=== PATIENT | male | born 1990 | race Caucasian/White ===

== ENCOUNTER 2022-08-24 11:50 | Emergency (ER) | payer MEDICAID ==
[~2022-08-24] VITALS: Ht 182 cm; Wt 91.0 kg
[2022-08-24] MEDS ORDERED: NS IV 1000 ML 1,000 ML IV STA (12:12)
[2022-08-24] MEDS ORDERED: HOLD METFORMIN - RECEIVED CONTRAST 20 ML VIAL IV SCH (12:15)
[2022-08-24] MEDS ORDERED: ONDANSETRON 4 MG/2 ML (SDV) Z0FRAN IVP ONE (12:15)
[2022-08-24] MEDS ORDERED: IOHEXOL 350 MG/ML 100 ML (OMNIPAQUE 350) VIAL IV ONE (12:15)
[2022-08-24] MEDS ORDERED: NS 100 ML (IVPB) BAG IV ONE (12:15)
--- NOTE | 2022-08-24 12:18 | ED Abdominal Pain ---
General Chief Complaint: Abdominal/GI Problems Stated Complaint: LT SIDE ABD PAIN Nursing Triage Note: PT AMB TO TRIAGE, PT STATES L SIDED ABD PAIN STARTED ON TUESDAY, RATES PAIN 6/10 AT TIMES. PT HAS NAUSEA AT TIMES. DENEIS PROB VOID OR BM AT THIS X. LAST BM 08/23/22 Source of Information: Patient Exam Limitations: No Limitations History of Present Illness Date Seen by Provider: Aug 24, 2022 Time Seen by Provider: 12:03 Initial Comments 32-year-old male presents to the ED with complaints of left sided abdominal pain for the last 4 days. States he was seen at the walk-in clinic on Tuesday, and was told it could be gas or his kidneys because he had positive left-sided CVA tenderness. States they did a urinalysis that did not show blood. States the pain has been constant, no change in the pain, no radiation. Reports some nausea, no vomiting. States had a normal bowel movement last night, denies blood in stool. Denies any pain with urination. Denies fevers. Past medical history includes depression, hypertension, and acid reflux. Allergies and Home Medications Allergies Coded Allergies: No Known Drug Allergies (Unverified , 08/24/22) Patient Home Medication List Home Medication List Reviewed: Yes Review of Systems Review of Systems Constitutional: see HPI Past Sfrqaqx-Uengrv-Gnxlwh Hx Patient Social History Tobacco Use?: No Substance use?: No Alcohol Use?: Yes Alcohol Frequency: Rarely Pt feels they are or have been: No Immunizations Up To Date Influenza Vaccine Up-to-Date: No; Not Current First/Initial COVID19 Vaccinat: no Past Medical History Surgery/Hospitalization HX: HTN, ANTI DEPRESSANT, GERD, Physical Exam Vital Signs Vital Signs - First Documented 08/24/22 11:58 Temp 36.6 Pulse 66 Resp 16 B/P (MAP) 149/86 (107) Pulse Ox 97 O2 Delivery Room Air Capillary Refill : Less Than 3 Seconds Height/Weight/BMI Height: '" Weight: lbs. oz. kg; 27.00 BMI Method: General Appearance: WD/WN, no apparent distress Neck: supple, normal inspection Respiratory: lungs clear, normal breath sounds, no respiratory distress, no accessory muscle use Cardiovascular: regular rate, rhythm, no edema, no gallop, no JVD, no murmur Gastrointestinal: normal bowel sounds, soft, no organomegaly, no pulsatile mass, tenderness (mild right lower quadrant, left lower quadrant, left upper quadrant, no rebound tenderness of right lower quadrant, negative Rovsing sign) Extremities: normal range of motion, normal inspection Back: No CVA tenderness (R); CVA tenderness (L) Neurologic/Psychiatric: alert, normal mood/affect, oriented x 3 Skin: normal color, warm/dry Progress/Results/Core Measures Results/Orders Lab Results Laboratory Tests Test 08/24/22 12:23 08/24/22 12:30 Range/Units Urine Color YELLOW Urine Clarity CLEAR Urine pH 7.0 5-9 Urine Specific [place] 1.015 L 1.016-1.022 Urine Protein NEGATIVE NEGATIVE Urine Glucose (UA) NEGATIVE NEGATIVE Urine Ketones NEGATIVE NEGATIVE Urine Nitrite NEGATIVE NEGATIVE Urine Bilirubin NEGATIVE NEGATIVE Urine Urobilinogen 0.2 < = 1.0 MG/DL Urine Leukocyte Esterase NEGATIVE NEGATIVE Urine RBC (Auto) NEGATIVE NEGATIVE Urine RBC NONE /HPF Urine WBC NONE /HPF Urine Crystals PRESENT H /LPF Urine Amorphous Sediment FEW MASSIMO PHOSPHATE H /LPF Urine Bacteria NEGATIVE /HPF Urine Casts NONE /LPF Urine Mucus NEGATIVE /LPF Urine Culture Indicated NO White Blood Count 5.5 4.3-11.0 10^3/uL Red Blood Count 4.78 4.30-5.52 10^6/uL Hemoglobin 14.8 13.3-17.7 g/dL Hematocrit 44 40-54 % Mean Corpuscular Volume 92 80-99 fL Mean Corpuscular Hemoglobin 31 25-34 pg Mean Corpuscular Hemoglobin Concent 34 32-36 g/dL Red Cell Distribution Width 13.1 10.0-14.5 % Platelet Count 246 130-400 10^3/uL Mean Platelet Volume 10.9 9.0-12.2 fL Immature Granulocyte % (Auto) 0 % Neutrophils (%) (Auto) 58 42-75 % Lymphocytes (%) (Auto) 30 12-44 % Monocytes (%) (Auto) 9 0-12 % Eosinophils (%) (Auto) 3 0-10 % Basophils (%) (Auto) 1 0-10 % Neutrophils # (Auto) 3.2 1.8-7.8 10^3/uL Lymphocytes # (Auto) 1.6 1.0-4.0 10^3/uL Monocytes # (Auto) 0.5 0.0-1.0 10^3/uL Eosinophils # (Auto) 0.2 0.0-0.3 10^3/uL Basophils # (Auto) 0.0 0.0-0.1 10^3/uL Immature Granulocyte # (Auto) 0.0 0.0-0.1 10^3/uL Sodium Level 141 135-145 MMOL/L Potassium Level 4.2 3.6-5.0 MMOL/L Chloride Level 105 98-107 MMOL/L Carbon Dioxide Level 26 21-32 MMOL/L Anion Gap 10 5-14 MMOL/L Blood Urea Nitrogen 13 7-18 MG/DL Creatinine 0.97 0.60-1.30 MG/DL Estimat Glomerular Filtration Rate 107 BUN/Creatinine Ratio 13 Glucose Level 103 70-105 MG/DL Calcium Level 9.5 8.5-10.1 MG/DL Corrected Calcium 9.1 8.5-10.1 MG/DL Total Bilirubin 0.5 0.1-1.0 MG/DL Aspartate Amino Transf (AST/SGOT) 19 5-34 U/L Alanine Aminotransferase (ALT/SGPT) 22 0-55 U/L Alkaline Phosphatase 59 40-136 U/L Total Protein 7.2 6.4-8.2 GM/DL Albumin 4.5 3.2-4.5 GM/DL Amylase Level 85 25-125 U/L Lipase 26 8-78 U/L My Orders Orders - STEFANO ANGELO [employer]ER[employer] Ua Culture If Indicated (08/24/22 11:58) Ondansetron Injection (Zofran Injectio (08/24/22 12:15) Ns Iv 1000 Ml (Sodium Chloride 0.9%) (08/24/22 12:12) Ed Iv/Invasive Line Start (08/24/22 12:12) Comprehensive Metabolic Panel (08/24/22 12:12) Lipase (08/24/22 12:12) Amylase (08/24/22 12:12) Cbc With Automated Diff (08/24/22 12:12) Ct Abdomen/Pelvis W (08/24/22 12:12) Iohexol Injection (Omnipaque 350 Mg/Ml 1 (08/24/22 12:15) Received Contrast (Hold Metformin- Contr (08/24/22 12:15) Ns (Ivpb) (Sodium Chloride 0.9% Ivpb Bag (08/24/22 12:15) Ketorolac Injection (Toradol Injection) (08/24/22 12:30) Medications Given in ED Current Medications Medications Dose Ordered Sig/Loretta Route Start Time Stop Time Status Last Admin Dose Admin Iohexol 100 ml ONCE ONCE IV 08/24/22 12:15 08/24/22 12:16 DC 08/24/22 13:05 80 ML Ketorolac Tromethamine 15 mg ONCE ONCE IVP 08/24/22 12:30 08/24/22 12:31 DC 08/24/22 12:31 15 MG Ondansetron HCl 4 mg ONCE ONCE IVP 08/24/22 12:15 08/24/22 12:16 DC 08/24/22 12:31 4 MG Sodium Chloride 100 ml ONCE ONCE IV 08/24/22 12:15 08/24/22 12:16 DC 08/24/22 13:06 80 ML Vital Signs/I&O 08/24/22 08/24/22 11:58 13:55 Temp 36.6 36.0 Pulse 66 60 Resp 16 18 B/P (MAP) 149/86 (107) 132/89 Pulse Ox 97 98 O2 Delivery Room Air Room Air Blood Pressure Mean: 107 Progress Progress Note #1: Time: 12:18 Progress Note Patient seen and evaluated, resting comfortably in bed, no acute distress, nontoxic. Abdomen soft and mildly tender in left upper quadrant, left lower quadrant, and right lower quadrant. No rebound tenderness, negative Rovsing sign. Based on exam and symptoms, differential diagnosis includes but is not limited to gastritis, nephrolithiasis, pyelonephritis, diverticulitis, appendicitis. Work-up initiated including CBC, CMP, amylase, lipase, UA, CT abdomen pelvis. IV fluids and Zofran ordered. Progress Note #2: Time: 13:36 Progress Note Labs and CT reviewed. CBC grossly normal, WBC 5.5, hemoglobin 14.8, hematocrit 44. CMP grossly normal, potassium 4.2, BUN 13, creatinine 0.97, GFR 107. Amylase normal 85, lipase normal 26. UA shows low specific gravity 1.015, crystals present, few amorphous sediment. CT negative for any acute abnormalities Results discussed with patient. Discharge instructions and return precautions provided. Departure Impression Primary Impression: Abdominal pain Qualified Codes: R10.9 - Unspecified abdominal pain Disposition: HOME, SELF-CARE Condition: Stable Departure-Patient Inst. Decision time for Depature: 13:45 Referrals: AIYANA DOMINGUEZ (PCP/Family) Primary Care Physician Patient Instructions: Abdominal Pain, Adult ED Add. Discharge Instructions: Follow-up with your primary care provider. Return for worsening pain, recurrent vomiting, fever, or any other new, concerning, worsening symptoms. All discharge instructions reviewed with patient and/or family. Voiced understanding. STEFANO ANGELO APRN Aug 24, 2022 12:18
[2022-08-24 12:30] LABS: BILIRUBIN,URINE NEGATIVE (NEGATIVE); CLARITY,URINE CLEAR; COLOR,URINE YELLOW; GLUCOSE, URINE (UA) NEGATIVE (NEGATIVE); KETONES,URINE NEGATIVE (NEGATIVE); LEUKOCYTE ESTERASE ,URINE NEGATIVE (NEGATIVE); NITRITE,URINE NEGATIVE (NEGATIVE); PROTEIN,URINE NEGATIVE (NEGATIVE)
[2022-08-24] MEDS ORDERED: KETOROLAC 15 MG/ML VIAL IVP ONE (12:30)
[2022-08-24 12:39] LABS: BASOPHILS % (AUTO) 1 % (0-10); EOSINOPHILS # (AUTO) 0.2 10^3/uL (0.0-0.3); EOSINOPHILS % (AUTO) 3 % (0-10); HEMATOCRIT 44 % (40-54); HEMOGLOBIN 14.8 g/dL (13.3-17.7); LYMPHOCYTES # (AUTO) 1.6 10^3/uL (1.0-4.0); LYMPHOCYTES % (AUTO) 30 % (12-44); MEAN CORPUSCULAR HEMOGLOBIN 31 pg (25-34); MEAN CORPUSCULAR HGB CONC 34 g/dL (32-36); MEAN CORPUSCULAR VOLUME 92 fL (80-99); MEAN PLATELET VOLUME 10.9 fL (9.0-12.2); MONOCYTES # (AUTO) 0.5 10^3/uL (0.0-1.0); MONOCYTES % (AUTO) 9 % (0-12); NEUTROPHILS # (AUTO) 3.2 10^3/uL (1.8-7.8); NEUTROPHILS % (AUTO) 58 % (42-75); PLATELET COUNT 246 10^3/uL (130-400); WHITE BLOOD COUNT 5.5 10^3/uL (4.3-11.0)
[2022-08-24 12:39] LABS: BACTERIA,URINE NEGATIVE /HPF
[2022-08-24 12:40] LABS: AMORPHOUS SEDIMENT,UR FEW AMOR PHOSPHATE /LPF
[2022-08-24 12:49] LABS: ALBUMIN 4.5 GM/DL (3.2-4.5); POTASSIUM 4.2 MMOL/L (3.6-5.0)
[2022-08-24 12:51] LABS: CALCIUM 9.5 MG/DL (8.5-10.1)
[2022-08-24 12:52] LABS: TOTAL PROTEIN 7.2 GM/DL (6.4-8.2)
[2022-08-24 12:54] LABS: BILIRUBIN,TOTAL 0.5 MG/DL (0.1-1.0)
[2022-08-24 12:55] LABS: CREATININE SERUM 0.97 MG/DL (0.60-1.30)
--- NOTE | 2022-08-24 13:32 | Diagnostic Imaging Report ---
PROCEDURE: CT abdomen and pelvis with contrast. TECHNIQUE: Multiple contiguous axial images were obtained through the abdomen and pelvis after administration of intravenous contrast. Auto Exposure Controls were utilized during the CT exam to meet ALARA standards for radiation dose reduction. All CT scans use one or more of the following dose optimizing techniques: automated exposure control, MA and/or KvP adjustment based on patient size and exam type or iterative reconstruction. DATE: August 24, 2022. COMPARISON: None. INDICATION: 32-year-old male, left lower quadrant abdominal pain. FINDINGS: There is minimal dependent atelectasis in the left lower lobe. The heart is not enlarged. There is no pericardial effusion. The liver is unremarkable in size and contour. There is no identified liver lesion. The main, right, and left portal veins are patent. The gallbladder is unremarkable. There is no intrahepatic or extrahepatic bile duct dilation. The main pancreatic duct is not abnormally dilated. Unremarkable appearance of the pancreatic parenchyma. The spleen is normal in size. The adrenal glands are unremarkable. Unremarkable appearance of the renal parenchyma. The urinary collecting systems are not distended. There is no identified renal or ureteral stone. The urinary bladder is unremarkable. The appendix is unremarkable and is well-seen on axial image 114 and adjacent sequential images. There is no free intraperitoneal air. There is no drainable fluid collection. There is no free fluid in the abdomen or pelvis. There is no identified abnormally enlarged lymph node in the abdomen or pelvis meeting CT size criteria for adenopathy. There is no identified acute bony abnormality. IMPRESSION: No identified acute abnormality in the abdomen or pelvis. Dictated by: Dictated on workstation # [id number]
[2022-08-24 13:55] VITALS: BP 132/89
== END 2022-08-24 14:00 | disposition home or self-care (01) ==
LOC: ER 11:54
DX: R10.31 Right lower quadrant pain (principal); R10.32 Left lower quadrant pain; R10.12 Left upper quadrant pain; Z28.310 Unvaccinated for COVID-19; Z87.19 Personal history of other diseases of the digestive system
CPT/HCPCS: 36415; 74177; 80053; 81000; 82150; 83690; 85025